=== PATIENT | male | born 1985 | race Caucasian/White ===

== ENCOUNTER 2018-07-21 13:35 | Emergency (ER) | payer BC ==
--- NOTE | 2018-07-21 14:49 | RAD REPORT ---
EXAM DESCRIPTION: CT - Stone Protocol - 07/21/2018 2:37 pm CLINICAL HISTORY: Flank pain. left flank pain COMPARISON: CTSTONE PROTOCOL dated 03/21/2014 TECHNIQUE: Axial images were obtained without oral or IV contrast. Lack of contrast limits solid org an and vascular assessment. The [id number] spans the entirety of the system partially obscuring uppermost abdomen and lung bases. Coronal reformatted images were obtained and reviewed. All CT scans are performed using dose optimization technique as appropriate and may include automated exposure control or mA/KV adjustment according to patient size. FINDINGS: The lower lung sanchez are clear. Imaged portions of the liver and spleen show no suspicious findings on non-contrast imaging. The panc reas and adrenal glands are normal. No pathologic lymphadenopathy in the abdomen or pelvis. A 2 mm calculus is present in the urinary bladder. This may be a recently passed stone. Minimal resid ual left-sided hydronephrosis suspected. Multiple punctate additional caliceal stones are present nelly aterally as well. No bowel obstruction, free air, free fluid or abscess. Normal appendix noted. No significant bony abnormality. IMPRESSION: 2 mm calculus in the urinary bladder may be recently passed via the left system where there is minimal residual left-sided hydronephrosis noted. Additional punctate bilateral renal calculi are noted.
[2018-07-21 15:06] LABS: Absolute Lymphocytes (CBC) 1.4 K/uL (0.7-4.9); Absolute Monocytes 0.4 K/uL (0.1-1.3); Absolute Neutrophil 6.5 K/uL (1.8-8.0); Basophils % 0.7 % (0-1.3); Eosinophils % 0.6 % (0-4.4); Hematocrit 45.2 % (39.6-49.0); Lymphocytes % 16.6 % (15.3-44.8); MPV 7.5 fL (7.6-11.3); Monocytes % 4.6 % (3.3-12.3); RBC Red Blood Cell Count 5.27 M/uL (4.33-5.43)
[2018-07-21 15:21] LABS: Albumin 4.3 g/dL (3.4-5.0); Bilirubin Direct 0.1 mg/dL (0-0.2); Bilirubin Total 0.6 mg/dL (0.2-1.0); Protein, Total 7.4 g/dL (6.4-8.2)
--- NOTE | 2018-07-21 15:46 | EDPHYS ---
Physician Documentation [facility] Name: Quinn Sterling II Age: 33 yrs Sex: Male : 1985 Arrival Date: 07/21/2018 Time: 13:38 Bed 13 Private MD: ED Physician Alok Peacock HPI: 07/21 14:15 This 33 yrs old Male presents to ER via Ambulatory with complaints of cp Possible Kidney Stone. 14:15 The patient complains of pain in the left flank. cp 14:15 The pain radiates to the abdomen. Onset: The symptoms/episode began/occurred this cp morning, and improved just prior to arrival. Associated signs and symptoms: Pertinent positives: nausea, Pertinent negatives: diarrhea, dizziness, fever, pain radiating to the lower extremities, vomiting. Severity of pain: in the emergency department the pain has improved markedly. The patient has experienced similar episodes in the past, today's symptoms are similar, to when the patient was apparently diagnosed with kidney stones. Historical: - Allergies: 14:01 PENICILLINS; jl7 14:01 Sulfa (Sulfonamide Antibiotics); jl7 - Home Meds: 14:01 None [Active]; jl7 - PMHx: 14:01 Kidney stones; jl7 - PSHx: 14:01 None; jl7 - Immunization history:: Adult Immunizations unknown. - Social history:: Smoking status: Patient/guardian denies using tobacco. - Ebola Screening: : No symptoms or risks identified at this time. ROS: 14:20 Constitutional: Negative for body aches, chills, fever, poor PO intake. cp 14:20 Eyes: Negative for injury, pain, redness, and discharge. cp 14:20 ENT: Negative for drainage from ear(s), ear pain, sore throat, difficulty swallowing, difficulty handling secretions. 14:20 Cardiovascular: Negative for chest pain, edema, palpitations. 14:20 Respiratory: Negative for cough, shortness of breath, wheezing. 14:20 Abdomen/GI: Positive for nausea, Negative for vomiting, diarrhea, constipation, black/tarry stool, rectal bleeding. 14:20 Back: Positive for flank pain, on the left, Negative for injury or acute deformity. 14:20 : Positive for burning with urination, Negative for testicular pain 14:20 Skin: Negative for cellulitis, rash. 14:20 All other systems are negative. Exam: 14:25 Constitutional: The patient appears in no acute distress, alert, awake, non-toxic, well cp developed, well nourished. 14:25 Head/Face: Normocephalic, atraumatic. cp 14:25 Eyes: Periorbital structures: appear normal, Conjunctiva: normal, no exudate, no injection, Sclera: no appreciated abnormality, Lids and lashes: appear normal, bilaterally. 14:25 ENT: External ear(s): are unremarkable, Nose: is normal, Mouth: Lips: moist, Oral mucosa: pink and intact, moist, Posterior pharynx: is normal, airway is patent, no erythema, no exudate. 14:25 Chest/axilla: Inspection: normal, Palpation: is normal, no crepitus, no tenderness. 14:25 Cardiovascular: Rate: normal, Rhythm: regular. 14:25 Respiratory: the patient does not display signs of respiratory distress, Respirations: normal, no use of accessory muscles, no retractions, no splinting, no tachypnea, labored breathing, is not present, Breath sounds: are clear throughout, no decreased breath sounds, no stridor, no wheezing. 14:25 Abdomen/GI: Inspection: abdomen appears normal, Bowel sounds: active, all quadrants, Palpation: soft, in all quadrants, nontender, in all quadrants, rebound tenderness, is not appreciated. 14:25 Back: CVA tenderness, is absent. 14:25 Skin: cellulitis, is not appreciated, no rash present. Vital Signs: 14:01 BP 132 / 82; Pulse 66; Resp 16 S; Temp 97.9(O); Pulse Ox 97% on R/A; Weight 106.59 kg jl7 (R); Height 5 ft. 10 in. (177.80 cm) (R); Pain 6/10; 16:08 BP 140 / 92; Pulse 66; Resp 16; Pulse Ox 98% on R/A; aj 14:01 Body Mass Index 33.72 (106.59 kg, 177.80 cm) jl7 MDM: 13:55 Patient medically screened. cp 15:45 Data reviewed: vital signs, nurses notes, lab test result(s), radiologic studies, CT cp scan. 15:45 Differential diagnosis: nephrolithiasis, pyelonephritis, UTI, diverticulitis. cp Counseling: I had a detailed discussion with the patient and/or guardian regarding: the historical points, exam findings, and any diagnostic results supporting the discharge/admit diagnosis, lab results, radiology results, to return to the emergency department if symptoms worsen or persist or if there are any questions or concerns that arise at home. Response to treatment: the patient's symptoms have resolved after treatment, the patient's pain is gone. 07/21 14:11 Order name: Basic Metabolic Panel; Complete Time: 15:39 cp 07/21 15:39 Interpretation: Normal except: CL 110; GFR 78. cp 07/21 14:11 Order name: CBC with Diff; Complete Time: 15:39 cp 07/21 15:39 Interpretation: Normal except: MPV 7.5; FERMIN% 77.5. cp 07/21 14:11 Order name: Creatinine for Radiology; Complete Time: 15:39 cp 07/21 14:11 Order name: Hepatic Function; Complete Time: 15:39 cp 07/21 14:11 Order name: Lipase; Complete Time: 15:39 cp 07/21 14:11 Order name: IV Saline Lock; Complete Time: 14:55 cp 07/21 14:11 Order name: Labs collected and sent; Complete Time: 14:55 cp 07/21 14:11 Order name: CT Stone Protocol; Complete Time: 14:54 cp 07/21 14:11 Order name: Urine Dipstick-Ancillary (obtain specimen); Complete Time: 14:54 cp 07/21 15:42 Order name: Urine Strainer cp Administered Medications: No medications were administered Disposition: 07/21/18 15:45 Discharged to Home. Impression: Calculus of lower urinary tract - Bladder. - Condition is Stable. - Discharge Instructions: Kidney Stones. - Medication Reconciliation Form, Thank You Letter, Antibiotic Education, Prescription Opioid Use form. - Follow up: Emergency Department; When: As needed; Reason: Worsening of condition. - Problem is new. - Symptoms have improved. Addendum: 07/24/2018 20:25 Co-signature as Attending Physician, Alok Peacock MD. r n Signatures: Dispatcher [employer] Leslie Kaiser RN RN aj Nieto, Roman, MD MD rn Page, Corey, PA PA Bianca Parker RN RN jl7 Corrections: (The following items were deleted from the chart) 07/21 16:12 15:45 07/21/2018 15:45 Discharged to Home. Impression: Calculus of lower urinary tract aj - Bladder. Condition is Stable. Forms are Medication Reconciliation Form, Thank You Letter, Antibiotic Education, Prescription Opioid Use. Follow up: Emergency Department; When: As needed; Reason: Worsening of condition. Problem is new. Symptoms have improved. cp
--- NOTE | 2018-07-21 15:46 | ER ---
Nurse's Notes [facility] Name: Quinn Sterling II Age: 33 yrs Sex: Male : 1985 Arrival Date: 07/21/2018 Time: 13:38 Bed 13 Private MD: Diagnosis: Calculus of lower urinary tract-Bladder Presentation: 07/21 14:00 Presenting complaint: Patient states: Left flank pain radiate to groin started at 0400 jl7 and has gotten worse, reports vomiting, reports hx of kidney stones. Transition of care: patient was not received from another setting of care. Onset of symptoms was July 21, 2018 at 04:00. Risk Assessment: Do you want to hurt yourself or someone else? Patient reports no desire to harm self or others. Initial Sepsis Screen: Does the patient meet any 2 criteria? No. Patient's initial sepsis screen is negative. Does the patient have a suspected source of infection? No. Patient's initial sepsis screen is negative. Care prior to arrival: None. 14:00 Method Of Arrival: Ambulatory jl7 14:00 Acuity: LORA 3 jl7 Triage Assessment: 14:01 General: Appears in no apparent distress. uncomfortable, Behavior is calm, cooperative, jl7 appropriate for age. Pain: Complains of pain in right flank Pain radiates to groin Pain currently is 6 out of 10 on a pain scale. at worst was 10 out of 10 on a pain scale. GI: Reports vomiting, Patient currently denies diarrhea, nausea. Historical: - Allergies: 14:01 PENICILLINS; jl7 14:01 Sulfa (Sulfonamide Antibiotics); jl7 - Home Meds: 14:01 None [Active]; jl7 - PMHx: 14:01 Kidney stones; jl7 - PSHx: 14:01 None; jl7 - Immunization history:: Adult Immunizations unknown. - Social history:: Smoking status: Patient/guardian denies using tobacco. - Ebola Screening: : No symptoms or risks identified at this time. Screenin:03 Abuse screen: Denies threats or abuse. Denies injuries from another. Nutritional jl7 screening: No deficits noted. Tuberculosis screening: No symptoms or risk factors identified. 16:08 Fall Risk None identified. aj Assessment: 16:08 General: Appears in no apparent distress. comfortable, Behavior is calm, cooperative, aj appropriate for age. Pain: Denies pain. Neuro: Level of Consciousness is awake, alert, obeys commands, Oriented to person, place, time, situation, Appropriate for age. Respiratory: Airway is patent Respiratory effort is even, unlabored, Respiratory pattern is regular, symmetrical. : Denies pain. Derm: Skin is intact, is healthy with good turgor, Skin is pink, warm \T\ dry. normal. 16:11 GI: aj Vital Signs: 14:01 BP 132 / 82; Pulse 66; Resp 16 S; Temp 97.9(O); Pulse Ox 97% on R/A; Weight 106.59 kg jl7 (R); Height 5 ft. 10 in. (177.80 cm) (R); Pain 6/10; 16:08 BP 140 / 92; Pulse 66; Resp 16; Pulse Ox 98% on R/A; aj 14:01 Body Mass Index 33.72 (106.59 kg, 177.80 cm) [facility] ED Course: 13:38 Patient arrived in ED. mr 13:54 Joe Flynn PA is PHCP. cp 13:54 Alok Peacock MD is Attending Physician. cp 13:58 Leslie Blanco, RN is Primary Nurse. 14:01 Triage completed. [facility] 14:01 Arm band placed on right wrist. [facility] 14:03 Patient has correct armband on for positive identification. Bed in low position. Call [facility] light in reach. Side rails up X 1. 14:38 CT Stone Protocol In Process Unspecified. EDMS 14:52 Initial lab(s) drawn, by nc, sent to lab. Inserted saline lock: 20 gauge in left 5 antecubital area, using aseptic technique. Blood collected. 14:54 [facility] 14:54 Creatinine [facility] Rad[facility] 14:55 Hepatic Function [facility] 14:55 Lipase [facility] 16:08 No provider procedures requiring assistance completed. IV discontinued, intact, aj bleeding controlled, No redness/swelling at site. Pressure dressing applied. Administered Medications: No medications were administered Outcome: 15:45 Discharge ordered by MD. cp 16:08 Discharged to home ambulatory, with family. aj 16:08 Condition: good 16:08 Discharge instructions given to patient, significant other, Instructed on discharge instructions, follow up and referral plans. Demonstrated understanding of instructions, follow-up care. 16:12 Patient left the ED. aj Signatures: Dispatcher [employer] Leslie Kaiser, RN Keyla George Corey, PA PA cp [place], [facility] Bianca Powell RN RN jl7
[2018-07-21 16:26] VITALS: TEMP 97.9
[2018-07-21 16:27] VITALS: BP 140/92; O2SAT 98
== END 2018-07-21 16:12 | disposition home or self-care (01) ==
LOC: ER 13:35
DX: N21.9 Calculus of lower urinary tract, unspecified (principal); Z88.0 Allergy status to penicillin; Z88.2 Allergy status to sulfonamides
CPT/HCPCS: 36415; 74176; 76377; 80048; 80076; 83690; 85025; 99283

== ENCOUNTER 2019-03-02 07:55 | Day surgery (SDC) | payer BC ==
[2019-03-01 14:29] LABS: Absolute Lymphocytes (CBC) 2.2 K/uL (0.7-4.9); Basophils % 1.1 % (0-1.3); Hematocrit 41.6 % (39.6-49.0); Lymphocytes % 40.1 % (15.3-44.8); MPV 7.6 fL (7.6-11.3); RBC Red Blood Cell Count 4.85 M/uL (4.33-5.43)
[2019-03-02] MEDS ORDERED: Ringers Lactate 1,000 ML IV ONE ×2 (08:05→13:59)
[2019-03-02] MEDS ORDERED: ONDANSETRON 4 MG/2 ML VIAL ONE ×2 (09:05→13:53)
[2019-03-02] MEDS ORDERED: MIDAZOLAM HCL 2 MG/2 ML INJ ONE (09:05)
[2019-03-02] MEDS ORDERED: FENTANYL CITR 250 MCG/5 ML ONE (09:05)
[2019-03-02] MEDS ORDERED: LIDOCAINE 2% MPF 5 ML VIAL ONE (09:05)
[2019-03-02] MEDS ORDERED: PROPOFOL 200 MG/20 ML VIAL IV ONE (09:05)
[2019-03-02] MEDS ORDERED: ROCURONIUM 50 MG/5 ML VIAL IV ONE (09:05)
[2019-03-02] MEDS ORDERED: CIPROFLOXACIN 400mg IV 400 MG/200 ML BAG IV ONE (09:58)
[2019-03-02] MEDS ORDERED: GLYCOPYRROLATE 0.2 MG/ML SYR ONE (11:00)
[2019-03-02] MEDS ORDERED: KETOROLAC 30 MG/ML INJ ONE (11:11)
--- NOTE | 2019-03-02 11:17 | P.BOP ---
Preoperative diagnosis: Left inguinal hernia Postoperative diagnosis: same Primary procedure: Laparoscopic repair of incarcerated left inguinal hernia with mesh Steward/Stewardess Second: Avelina Logan) Estimated blood loss: <10cc Specimen: none Findings: Left inguinal henia, incarcerated viable omentum Anesthesia: General Complications: None Implants: 3d medium mesh Transferred to: Recovery Room Condition: Good
[2019-03-02] MEDS: HYDROMORPHONE HCL 1 MG/ML INJ ONE ×4 (11:41→12:29)
[2019-03-02] MEDS ORDERED: ONDANSETRON 4 MG/2 ML VIAL IV ONE (13:55)
[2019-03-02] MEDS ORDERED: HYDROCODONE/APAP 7.5/325 MG TAB ONE (15:25)
[2019-03-02] MEDS ORDERED: HYDROCODONE/APAP 7.5/325 MG TAB PO ONE (15:30)
[2019-03-02 16:13] VITALS: TEMP 97.6
[2019-03-02 16:14] VITALS: BP 118/81; O2SAT 95
--- NOTE | 2019-03-04 00:46 | OP ---
Date of Procedure: 03/02/2019 Surgeon: Yovanny Crandall MD Power Equipment Mechanics Instructor: JANES David. Preoperative Diagnosis: Left inguinal hernia. Postoperative Diagnosis: Left inguinal hernia. Procedure: Laparoscopic repair of incarcerated left inguinal hernia with mesh. Findings: Left inguinal hernia incarcerated viable omentum. Anesthesia: General plus local. Implants: A 3D mesh medium. This is a case of a male, who comes to us with a tender left inguinal hernia. Benefits, alternatives , and risks of repair fully explained which include, but not limited to infection, bleeding, damage t o adjacent structures, anesthesia complication, recurrence, chronic pain, chronic numbness, fascicula r damage, MA, and even . He also understands this may not relieve the symptoms. He might need more than one surgical intervention. He understood, signed a consent. Patient was explained details about the mesh placement. The pros and cons of mesh placement were discussed with the patient and h e did allow me to use mesh. Description Of Procedure: Patient was brought to the operating room, placed in supine position. Ane sthesia was given without complication. A time-out was called. Abdomen and inguinal region were pre pped and draped in sterile fashion. An incision was made in the infraumbilical region. Incision was carried down until we found the anterior rectus sheath. It was open on the left side. The muscle w as retracted laterally to expose the posterior rectus sheath. The extraperitoneal space was gently d eveloped with blunt dissection and then a space maker device with the balloon that was inflated under direct visualization. Balloon was removed. Insufflation was obtained. Camera was placed once agai n, and we placed 2 more trocars, 5 mm, 1 in the pubic symphysis and another one [facility] between the f irst and the second one. Development of the extraperitoneal space was done by exposing the inferior epigastric vessels and keeping them anterior. The Michael ligament was dissected laterally to the alec ction with the iliac veins. The dissection was continued inferiorly to the iliopubic tract, avoiding damage to the femoral branch of the genitofemoral nerve and lateral femoral cutaneous nerve. The co rd structures were visualized, carefully skeletonized, sac was identified and carefully dissected vani e and reduced back into the abdominal cavity. A 3D medium mesh was then rolled and placed through on e of the trocar site in the working space, outlined with the space to cover direct and indirect space s. The mesh was secured in place with SorbaFix lateral and superior to the iliopubic tract and infer ior and medial to the Michael ligament. After securing adequate hemostasis and injected the area with some lidocaine for local anesthetic, we proceeded to deflate the area under direct visualization and made sure we held the mesh in place and also made sure the hernia sac was still reduced into the per itoneal cavity. Trocars were removed. Vicryl #1 used to close the anterior rectus sheath and the sk in in subcuticular fashion with 3-0 chromic and Steri-Strips on top. Sponge count and instrument cou nts were correct. The patient tolerated the procedure well. The patient was sent to recovery in sta ble condition. At the end of the case, the testicles were in the scrotum. Disposition: Home. Activity: As tolerated. No heavy lifting. Followup: Follow up in my office in 1 week. Call for appointment [phone]. Keep area dry for 48 ho urs, then may shower. Keep Steri-Strips intact. Use cold compress over the left inguinal region for 24 hours. Medications: See orders. JACKI/DARRELL Voice ID: [id number] Report ID: [id number]
== END 2019-03-02 15:50 | disposition home or self-care (01) ==
LOC: OR 07:55
PROVIDERS: ATTEND Surgery
PROC: 0YU64JZ Supplement Left Inguinal Region with Synthetic Substitute, Percutaneous Endoscopic Approach (ICD-10-PCS; principal; 2019-03-02 10:00)
DX: K40.30 Unilateral inguinal hernia, with obstruction, without gangrene, not specified as recurrent (principal); Z88.0 Allergy status to penicillin; Z88.2 Allergy status to sulfonamides
CPT/HCPCS: 85025; 80048; 36415; 49650; J2704; J2250; J3010; J1170 ×2; J2405 ×3; J0744

== ENCOUNTER 2022-05-21 05:58 | Day surgery (SDC) | payer BC ==
[2022-05-19 09:56] LABS: Absolute Lymphocytes (CBC) 2.1 K/uL (0.7-4.9); Hematocrit 45.2 % (39.6-49.0); MPV 7.7 fL (7.6-11.3); RBC Red Blood Cell Count 5.25 M/uL (4.33-5.43)
[2022-05-19 10:07] LABS: Albumin 3.9 g/dL (3.4-5.0); Bilirubin Direct 0.1 mg/dL (0-0.2); Bilirubin Total 0.6 mg/dL (0.2-1.0); Potassium 4.3 mmol/L (3.5-5.1); Protein, Total 7.5 g/dL (6.4-8.2)
[2022-05-21] MEDS ORDERED: Ringers Lactate 1,000 ML IV ONE (06:11)
[2022-05-21] MEDS ORDERED: CELECOXIB 100 MG CAPSULE ONE (07:15)
[2022-05-21] MEDS ORDERED: ACETAMINOPHEN 500 MG TAB ONE (07:15)
[2022-05-21] MEDS ORDERED: propofoL 200 MG/20 ML VIAL IV ONE (07:16)
[2022-05-21] MEDS ORDERED: FENTANYL CITR 100 MCG/2 ML ONE (07:17)
[2022-05-21] MEDS ORDERED: ONDANSETRON 4 MG/2 ML VIAL ONE ×2 (07:18→08:50)
[2022-05-21] MEDS ORDERED: LIDOCAINE 2% MPF 5 ML VIAL ONE (07:18)
[2022-05-21] MEDS ORDERED: MIDAZOLAM HCL 2 MG/2 ML INJ ONE (07:18)
[2022-05-21] MEDS ORDERED: ROCURONIUM 50 MG/5 ML VIAL IV ONE (07:18)
[2022-05-21] MEDS ORDERED: CIPROFLOXACIN 400mg IV 400 MG/200 ML BAG IV ONE (07:29)
[2022-05-21] MEDS ORDERED: dexAMETHasone 4 MG/ML VIAL ONE (07:49)
[2022-05-21] MEDS ORDERED: KETOROLAC 30 MG/ML INJ ONE (08:10)
[2022-05-21] MEDS ORDERED: NEOSTIGMINE 1 MG/ML -5 ML ONE (08:11)
[2022-05-21] MEDS ORDERED: GLYCOPYRROLATE 0.2 MG/ML SYR ONE (08:11)
--- NOTE | 2022-05-21 08:13 | P.BOP ---
Preoperative diagnosis: RUQ abd pain, biliary dyskinesia Postoperative diagnosis: same, umbilical hernia Primary procedure: Laparoscopic Cholecystectomy Secondary procedure: Umbilical hernia repair Morgue Technician: FELICITY BLAIR (DINKING MACHINE OPERATOR) Estimated blood loss: <10cc Specimen: GB, sac Findings: as above Anesthesia: General Complications: None Transferred to: Recovery Room Condition: Good
[2022-05-21] MEDS: HYDROMORPHONE HCL 1 MG/ML INJ ONE ×2 (08:54→09:04)
[2022-05-21] MEDS ORDERED: PROMETHAZINE INJ 25 MG/ML AMP ONE (08:59)
[2022-05-21] MEDS ORDERED: CODEINE 30MG/APAP 300MG TAB ONE (09:53)
[2022-05-21 11:09] VITALS: BP 123/87; TEMP 97; O2SAT 94
--- NOTE | 2022-05-21 21:00 | DS ---
Date of Discharge: 05/21/2022 Diagnoses: Biliary dyskinesia and right upper quadrant abdominal pain. Procedure: Laparoscopic cholecystectomy. Disposition: Home. Activity: As tolerated, no heavy lifting. Follow Up: In my office in 1 week. Call for appointment at [phone]. Discharge Instructions: Keep the area dry for 48 hours, then may shower. Keep Steri-Strips intact. JACKI/DARRELL Voice ID: [id number] Report ID: [id number]
--- NOTE | 2022-05-21 21:00 | OP ---
Date of Procedure: 05/21/2022 Surgeon: Yovanny Crandall MD Preoperative Diagnoses: Biliary dyskinesia and right upper quadrant abdominal pain. Postoperative Diagnoses: Biliary dyskinesia, right upper quadrant abdominal pain, and umbilical keren ia. Procedures: Laparoscopic cholecystectomy and open repair of umbilical hernia. Anesthesia: General plus local. Estimated Blood Loss: Less than 10 cc. Specimen: Gallbladder. Indications: This is a case of a 36-year-old patient with above diagnoses. Fully explained the bene fits, alternatives, and risks of laparoscopic possible open cholecystectomy, which include, but are n ot limited to infection, bleeding, damage to adjacent structures, anesthesia complication, choledocho lithiasis, bile leak, pancreatitis, PR, and . He also understands this might not relieve any sy mptoms. He might need more than one surgical intervention. He understood and signed a consent. Procedure In Detail: Patient was brought to the operating room and placed in supine position. Anest hesia was given without complication. Abdominal area was prepped and draped in usual sterile fashion . Marcaine 0.5% was injected for local anesthetic followed by sharp incision of the skin in the infr aumbilical region. When we did that, we noticed the patient to have a small reducible umbilical keren ia so we added our incision to that umbilical hernia, removed the hernia sac, cleaned the fascia edge s, placed Vicryl #1 inside the fascia. Rosana trocar was carefully introduced. Pneumoperitoneum was obtained. I placed 3 more trocars, 5 mm each one of them, in the epigastric and right upper quadran t area under direct visualization. At that moment, I proceeded to put a grasper in the fundus of the gallbladder and another grasper in the infundibulum, retracting the gallbladder in the inferolateral fashion exposing the triangle of Calot and obtaining critical view. Cystic duct and cystic artery w ere clearly isolated and freed circumferentially and a connection between those and the gallbladder w ere clearly identified. I proceeded to ligate those by using at least 3 clips proximal and 1 clip di stal and ligation in middle. Same was done with the cystic artery. No bile leak. No bleeding. The gallbladder was removed from liver using Bovie cauterizer and removed from abdominal cavity using En do Catch through the umbilical incision. The area was inspected once again. No bile leak. No bleed ing. At that moment, I proceeded to remove the trocars under direct vision, deflated the pneumoperit oneum, and closed the fascia and umbilical hernia with #1 Vicryl. Irrigated subcutaneous tissue, joanna sed that with 3-0 chromic and skin with 3-0 chromic in a subcuticular fashion. Sponge count and inst rument counts were correct. Patient tolerated the procedure well. Patient was sent to recovery in s table condition. JACKI/DARRELL Voice ID: [id number] Report ID: [id number]
== END 2022-05-21 10:27 | disposition home or self-care (01) ==
LOC: OR 05:58
PROVIDERS: ATTEND Surgery
PROC: 0FT44ZZ Resection of Gallbladder, Percutaneous Endoscopic Approach (ICD-10-PCS; principal; 2022-05-21 07:30)
DX: K82.8 Other specified diseases of gallbladder (principal); R10.11 Right upper quadrant pain; K42.9 Umbilical hernia without obstruction or gangrene; Z88.0 Allergy status to penicillin; Z88.2 Allergy status to sulfonamides
CPT/HCPCS: 47562; 85025; 80048; 36415; 82150; 80076; 88302; 88304; 83690; J2704; J1100; J2550; J2001; J2250; J3010; J1170; J2710; J7120; J2405 ×2; J0744

== ENCOUNTER 2025-04-05 19:53 | Emergency (ER) | payer BC ==
[2025-04-05] MEDS ORDERED: ONDANSETRON 4 MG/2 ML VIAL ONE (20:27)
[2025-04-05] MEDS ORDERED: NA CHLORIDE 0.9% 1,000 ML ONE (20:27)
[2025-04-05] MEDS ORDERED: KETOROLAC 30 MG/ML INJ ONE (20:27)
[2025-04-05] MEDS ORDERED: HYDROMORPHONE HCL 2 MG/ML inj ONE (20:58)
[2025-04-05 21:01] LABS: Absolute Lymphocytes (CBC) 0.8 K/uL (0.7-4.9); Hematocrit 43.3 % (39.6-49.0); Hemoglobin 15.3 g/dL (13.6-17.9); MCH 29.8 pg (27.0-35.0); MCHC 35.2 g/dL (32.0-36.0); MCV 84.6 fL (80-100); MPV 7.4 fL (7.6-11.3); Nucleated RBC Absolute Count 0.0 (0-0); Nucleated Red Blood Cells % 0.1 % (0-0); RBC Red Blood Cell Count 5.12 M/uL (4.33-5.43); White Blood Count 10.80 thou/uL (4.3-10.9)
--- NOTE | 2025-04-05 21:02 | RAD REPORT ---
EXAMINATION: CT Abdomen Pelvis Wo Contrast CLINICAL INDICATION: Male, 39 years old. stone protocol;Flank pain TECHNIQUE: CT abdomen and pelvis was performed, without IV contrast, as per department protocol. Axia l, sagittal and coronal reconstructions were obtained. One or more of the following dose reduction techniques were used: Automated exposure control, adjustment of the mA and kV according to the patien t size, and iterative reconstruction. Unless otherwise specified, incidental findings do not require dedicated imaging follow-up. COMPARISON: 07/21/2018 FINDINGS: The lack of intravenous contrast limits the sensitivity of this exam for evaluation of solid visceral organs, vascular structures, and retroperitoneum. LOWER CHEST: The visualized lung bases are clear. LIVER: Normal in size and contour. No focal lesion. BILIARY SYSTEM: Status post cholecystectomy. SPLEEN: Normal size. No focal lesion. PANCREAS: No mass, ductal dilation, or janina-pancreatic fluid. ADRENALS: Normal; no mass. KIDNEYS AND URETERS: Mild hydronephrosis and proximal left hydroureter. 6 mm calculus at the left pel viureteric junction. Periureteric fat stranding extends towards the mid left ureter. Other nonobstructing calculi along the right renal calyces largest measuring 5 mm. URINARY BLADDER: Normal contour. GASTROINTESTINAL TRACT: No evidence of bowel obstruction, significant free fluid, free air or abscess . APPENDIX: Normal appendix upper from stable mild fat stranding surrounding the tip of the appendix. LYMPH NODES: No lymphadenopathy. MUSCULOSKELETAL: No acute or suspicious osseous abnormality. ADDITIONAL FINDINGS: None. IMPRESSION: Mild hydronephrosis and proximal left hydroureter. 6 mm calculus at the left pelviureteric junction. Other nonobstructing right renal calculi up to 5 mm in size. THIS REPORT CONTAINS FINDINGS THAT MAY BE CRITICAL TO PATIENT CARE. The findings were verbally commun icated via telephone to Joe Page on 04/05/2025 8:59 PM.
[2025-04-05 21:17] LABS: ALT/SGPT 38.0 U/L (16-61); AST/SGOT 16.0 U/L (15-37); Albumin 4.1 g/dL (3.4-5.0); Albumin/Globulin Ratio 1.2 (1.1-1.8); Alkaline Phosphatase 81.0 U/L (45-117); Anion Gap 7.8 mEq/L (5.0-15.0); BUN Blood Urea Nitrogen 13.0 mg/dL (7-18); Globulin 3.5 g/dL (2.3-3.5); Glucose Level 121.0 mg/dL (74-106); Lipase 21.0 U/L (13-75); Potassium 3.8 mEq/L (3.5-5.1)
[2025-04-05 21:45] LABS: Blood Morphology Comment NOT SEEN (NOT SEEN); White Blood Cell Scan OK (OK)
[2025-04-05 21:55] LABS: Urine Microscopic Reflex YN NO UMIC
--- NOTE | 2025-04-05 22:04 | EDPHYS ---
Physician Documentation [facility] Name: Quinn Sterling II Age: 39 yrs Sex: Male : 1985 Arrival Date: 04/05/2025 Time: 19:53 Bed 4 Private MD: Justin Powell ED Physician Ana Luisa Hay HPI: 04/05 20:15 This 39 yrs old Male presents to ER via Ambulatory with complaints of Possible Kidney sp3 Stone. 20:15 39-year-old male with history of hypertension and kidney stones presents to the ED with sp3 24 hours of left flank pain consistent with his prior kidney stone episodes. He endorses nausea. He denies headache, neck pain, chest pain, shortness of breath, vomiting, diarrhea, syncope, near syncope, or any other signs or symptoms on ROS at this time.. Historical: - Allergies: 20:07 PENICILLINS; dd2 20:07 Sulfa (Sulfonamide Antibiotics); dd2 - PMHx: 20:07 Kidney stones; Hypertensive disorder; dd2 - PSHx: 20:07 Cholecystectomy; Vasectomy; KIDNEY STENTS; dd2 - Immunization history:: Adult Immunizations up to date. - Infectious Disease History:: Denies. - Social history:: Smoking status: Patient denies any tobacco usage or history of. ROS: 20:16 Constitutional: Negative for fever, chills, and weight loss, Eyes: Negative for injury, sp3 pain, redness, and discharge, Neck: Negative for injury, pain, and swelling, Cardiovascular: Negative for chest pain, palpitations, and edema, Respiratory: Negative for shortness of breath, cough, wheezing, and pleuritic chest pain, MS/Extremity: Negative for injury and deformity, Skin: Negative for injury, rash, and discoloration, Neuro: Negative for headache, weakness, numbness, tingling, and seizure, Psych: Negative for depression, anxiety, suicide ideation, homicidal ideation, and hallucinations, Allergy/Immunology: Negative for hives, rash, and allergies, Endocrine: Negative for neck swelling, polydipsia, polyuria, polyphagia, and marked weight changes, 20:16 All other systems are negative, Exam: 20:16 Constitutional: This is a well developed, well nourished patient who is awake, alert, sp3 and in no acute distress. Head/Face: Normocephalic, atraumatic. Eyes: Pupils equal round and reactive to light, extra-ocular motions intact. Lids and lashes normal. Conjunctiva and sclera are non-icteric and not injected. Cornea within normal limits. Periorbital areas with no swelling, redness, or edema. ENT: Nares patent. No nasal discharge, no septal abnormalities noted. External auditory canals are clear. Oropharynx with no redness, swelling, or masses, exudates, or evidence of obstruction, uvula midline. Mucous membranes moist. Neck: Trachea midline, no thyromegaly or masses palpated, and no cervical lymphadenopathy. Supple, full range of motion without nuchal rigidity, or vertebral point tenderness. No Meningismus. Chest/axilla: Normal chest wall appearance and motion. Nontender with no deformity. No lesions are appreciated. Cardiovascular: Regular rate and rhythm with a normal S1 and S2. No gallops, murmurs, or rubs. Normal PMI, no JVD. No pulse deficits. Respiratory: Lungs have equal breath sounds bilaterally, clear to auscultation and percussion. No rales, rhonchi or wheezes noted. No increased work of breathing, no retractions or nasal flaring. Skin: Warm, dry with normal turgor. Normal color with no rashes, no lesions, and no evidence of cellulitis. MS/ Extremity: Pulses equal, no cyanosis. Neurovascular intact. Full, normal range of motion. Neuro: Awake and alert, GCS 15, oriented to person, place, time, and situation. Cranial nerves II-XII grossly intact. Motor strength 5/5 in all extremities. Sensory grossly intact. Cerebellar exam normal. Normal gait. Psych: Awake, alert, with orientation to person, place and time. Behavior, mood, and affect are within normal limits. 20:16 Abdomen/GI: Abdomen is soft. Left flank pain on CVA exam noted. Positive CVA tenderness., Vital Signs: 20:03 BP 129 / 95; Pulse 62; Resp 17; Temp 98.3; Pulse Ox 100% on R/A; Weight 101.6 kg; dd2 Height 5 ft. 10 in. ; Pain 5/10; 20:44 BP 129 / 85; Pulse 57; Resp 18; Pulse Ox 100% on R/A; al5 21:33 BP 129 / 86; Pulse 56; Resp 16; Pulse Ox 92% on R/A; kb4 21:54 Pulse Ox 97% on 2 lpm NC; kb4 22:24 BP 130 / 86; Pulse 65; Resp 16; Pulse Ox 98% on R/A; kb4 20:03 Body Mass Index 32.14 (101.60 kg, 177.8 cm) dd2 20:03 Pain Scale: Adult dd2 MDM: 20:02 Medical Screening Exam initiated sp3 20:17 Data reviewed: vital signs, nurses notes, lab test result(s), radiologic studies. ED sp3 course: 39-year-old male with left flank pain. Differential diagnosis includes ureterolithiasis/kidney stone spectrum, UTI/pyelonephritis spectrum, musculoskeletal, colitis, other intra-abdominal pathology including biliary and/or appendix. Workup will include CT scan of the abdomen pelvis noncontrast and a kidney stone protocol, general labs, UA and treatment with IV fluids and pain and nausea medications as needed.. 22:00 ED course: Patient with 6 mm kidney stone in the left UPJ. Creatinine at 1.2 in the sp3 normal range and UA demonstrates no infection. Pain is now controlled after Dilaudid. We will safely discharge patient home on Flomax, tramadol, diclofenac.. 04/05 20:10 Order name: CBC with Diff; Complete Time: 21:52 sp3 04/05 20:10 Order name: CMP; Complete Time: 21:52 sp3 04/05 20:10 Order name: Lipase; Complete Time: 21:52 sp3 04/05 20:10 Order name: UA Rfx Archie Cult if indicated; Complete Time: 21:59 sp3 04/05 21:04 Order name: CBC Smear Scan; Complete Time: 21:52 EDMS 04/05 20:10 Order name: CT Abd/Pelvis - Without Contrast; Complete Time: 21:09 sp3 04/05 20:10 Order name: IV Saline Lock; Complete Time: 20:48 sp3 04/05 20:10 Order name: Labs collected and sent; Complete Time: 20:48 sp3 Administered Medications: 20:38 Drug: TORadol - Ketorolac IVP 15 mg IVP once Route: IVP; Site: right antecubital; al5 21:02 Follow up: Response: No adverse reaction al5 20:38 Drug: Ondansetron IVP 4 mg IVP once; over 2 minutes Route: IVP; Site: right antecubital;al5 21:01 Follow up: Response: No adverse reaction al5 20:38 Drug: NS 0.9% IV 1000 ml IV at 1 bolus Per protocol; to be given as a bolus over 60 al5 minutes Route: IV; Rate: 1 bolus; Site: right antecubital; 21:01 Drug: HYDROmorphone IVP 2 mg IVP once Route: IVP; Site: left antecubital; al5 21:29 Follow up: Response: No adverse reaction kb4 Disposition Summary: 04/05/25 22:03 Discharge Ordered Notes: Location: Home sp3 Condition: Stable sp3 Diagnosis - Ureterolithiasis, kidney stone, left flank pain sp3 Followup: sp3 - With: Jose Alfredo Cortes MD - When: Upon discharge from the Emergency Department - Reason: Continuance of care Discharge Instructions: - Discharge Summary Sheet sp3 - Kidney Stones sp3 Forms: - Medication Reconciliation Form sp3 - Antibiotic Education sp3 - Prescription Opioid Use sp3 - Patient Portal Instructions sp3 - Leadership Thank You Letter sp3 Prescriptions: - Flomax 0.4 mg Oral capsule - take 1 capsule ORAL route daily; 7 capsule; Refills: 0, Product Selection sp3 Permitted - Diclofenac Sodium 75 mg Oral Tablet Sustained Release - take 1 tablet ORAL route 2 times per day; 30 tablet; Refills: 0, Product sp3 Selection Permitted - Tramadol 50 mg Oral Tablet - take 1 tablet ORAL route every 8 hours as needed; 12 tablet; Refills: 0, sp3 Product Selection Permitted Signatures: Dispatcher [employer] EDMS Ana Luisa Hay MD MD sp3 Leslie Andrea RN RN al5 ALDAIR RIZVI RN RN dd2 Louise Reddy RN RN kb4 Corrections: (The following items were deleted from the chart) 20:11 20:11 CBC+H.LAB.BRZ ordered. EDMS EDMS 20:11 20:11 COMPREHENSIVE METABOLIC PANEL+C.LAB.BRZ ordered. EDMS EDMS 20:11 20:11 LIPASE+C.LAB.BRZ ordered. EDMS EDMS 20:11 20:11 UA Rfx Archie Cult if indicated+U.LAB.BRZ ordered. EDMS EDMS 20:11 20:11 Abdomen Pelvis Wo Con+CT.RAD.BRZ ordered. EDMS EDMS
--- NOTE | 2025-04-05 22:04 | ER ---
Nurse's Notes [facility] Name: Quinn Sterling II Age: 39 yrs Sex: Male : 1985 Arrival Date: 04/05/2025 Time: 19:53 Bed 4 Private MD: Justin Powell Diagnosis: Ureterolithiasis, kidney stone, left flank pain Presentation: 04/05 20:03 Chief complaint: Patient states: LT MIDDLE AND LT LOWER BACK PAIN THAT RADIATES TO LT dd2 LOWER STOMACH AND LT GROIN. PT REPORTS HX OF KIDNEY STONES. Coronavirus screen: At this time, the client does not indicate any symptoms associated with coronavirus-19. Ebola Screen: No symptoms or risks identified at this time. Initial Sepsis Screen: Does the patient meet any 2 criteria? No. Patient's initial sepsis screen is negative. Does the patient have a suspected source of infection? No. Patient's initial sepsis screen is negative. Risk Assessment: Do you want to hurt yourself or someone else? Patient reports no desire to harm self or others. Onset of symptoms was April 05, 2025 at 08:15. 20:03 Method Of Arrival: Ambulatory dd2 20:03 Acuity: LORA 3 dd2 Triage Assessment: 20:07 General: Appears uncomfortable, Behavior is calm, cooperative, appropriate for age. dd2 Pain: Complains of pain in left low back and left mid back Pain radiates to left lower quadrant and groin. GI: Reports lower abdominal pain. : Reports pain in left lower quadrant(s) LT LOWER AND MIDDLE BACK. Historical: - Allergies: 20:07 PENICILLINS; dd2 20:07 Sulfa (Sulfonamide Antibiotics); dd2 - PMHx: 20:07 Kidney stones; Hypertensive disorder; dd2 - PSHx: 20:07 Cholecystectomy; Vasectomy; KIDNEY STENTS; dd2 - Immunization history:: Adult Immunizations up to date. - Infectious Disease History:: Denies. - Social history:: Smoking status: Patient denies any tobacco usage or history of. Screenin:00 [facility] ED Fall Risk Assessment (Adult) History of falling in the last 3 months, kb4 including since admission No falls in past 3 months (0 pts) Confusion or Disorientation No (0 pts) Intoxicated or Sedated No (0 pts) Impaired Gait No (0 pts) Mobility Assist Device Used No (0 pt) Altered Elimination No (0 pt) Score/Fall Risk Level 0 - 2 = Low Risk. Tuberculosis screening: No symptoms or risk factors identified. 22:25 Abuse screen: Denies threats or abuse. Denies injuries from another. Nutritional kb4 screening: No deficits noted. Assessment: 20:45 Reassessment: Patient is alert, oriented x 3, equal unlabored respirations, skin al5 warm/dry/pink. at bedside. General: Appears distressed, uncomfortable, Behavior is calm, cooperative. 20:58 Reassessment: pt reported very little relief from Toradol, physician notified. al5 21:25 GI: Bowel sounds present X 4 quads. Abd is soft and non tender X 4 quads. kb4 21:29 Reassessment: pain relieved from medication interventions. kb4 21:34 Reassessment: placed on2l NC. kb4 22:15 Reassessment: Patient and/or family updated on plan of care and expected duration. Pain kb4 level reassessed. Patient is alert, oriented x 3, equal unlabored respirations, skin warm/dry/pink. feeling much better. Vital Signs: 20:03 BP 129 / 95; Pulse 62; Resp 17; Temp 98.3; Pulse Ox 100% on R/A; Weight 101.6 kg; dd2 Height 5 ft. 10 in. ; Pain 5/10; 20:44 BP 129 / 85; Pulse 57; Resp 18; Pulse Ox 100% on R/A; al5 21:33 BP 129 / 86; Pulse 56; Resp 16; Pulse Ox 92% on R/A; kb4 21:54 Pulse Ox 97% on 2 lpm NC; kb4 22:24 BP 130 / 86; Pulse 65; Resp 16; Pulse Ox 98% on R/A; kb4 20:03 Body Mass Index 32.14 (101.60 kg, 177.8 cm) dd2 20:03 Pain Scale: Adult dd2 ED Course: 19:55 Patient arrived in ED. gm2 19:56 Justin Powell MD is Private Physician. gm2 20:00 Ana Luisa Hay MD is Attending Physician. sp3 20:07 Triage completed. dd2 20:07 Arm band placed on right wrist. dd2 20:24 Langhorst, Leslie, RN is Primary Nurse. al5 20:30 CT Abd/Pelvis - Without Contrast In Process Unspecified. EDMS 21:00 Patient has correct armband on for positive identification. Provided Education on: d/c .kb4 21:00 No provider procedures requiring assistance completed. IV discontinued, intact, kb4 bleeding controlled, No redness/swelling at site. Pressure dressing applied. 22:03 Jose Alfredo Cortes MD is Referral Physician. sp3 Administered Medications: 20:38 Drug: TORadol - Ketorolac IVP 15 mg IVP once Route: IVP; Site: right antecubital; al5 21:02 Follow up: Response: No adverse reaction al5 20:38 Drug: Ondansetron IVP 4 mg IVP once; over 2 minutes Route: IVP; Site: right antecubital;al5 21:01 Follow up: Response: No adverse reaction al5 20:38 Drug: NS 0.9% IV 1000 ml IV at 1 bolus Per protocol; to be given as a bolus over 60 al5 minutes Route: IV; Rate: 1 bolus; Site: right antecubital; 21:01 Drug: HYDROmorphone IVP 2 mg IVP once Route: IVP; Site: left antecubital; al5 21:29 Follow up: Response: No adverse reaction kb4 Medication: 22:26 VIS not applicable for this client. kb4 Outcome: 21:00 Discharged to home ambulatory, with family, kb4 21:00 Condition: good 21:00 Discharge instructions given to patient, family, Instructed on discharge instructions, follow up and referral plans. medication usage, Demonstrated understanding of instructions, follow-up care, medications, Prescriptions given X 3, 22:03 Discharge ordered by . sp3 22:27 Patient left the ED. kb4 Signatures: Dispatcher [employer] EDMS Ana Luisa Hay MD MD sp3 Lora Elder gm2 Leslie Andrea RN RN al5 ALDAIR RIZVI RN RN dd2 Louise Reddy RN RN kb4 Corrections: (The following items were deleted from the chart) 22:26 22:25 [facility] ED Fall Risk Assessment (Adult) History of falling in the last 3 months, kb4 including since admission No falls in past 3 months (0 pts) Confusion or Disorientation No (0 pts) Intoxicated or Sedated No (0 pts) Impaired Gait No (0 pts) Mobility Assist Device Used No (0 pt) Altered Elimination No (0 pt) Score/Fall Risk Level 0 - 2 = Low Risk kb4 22:26 22:25 Tuberculosis screening: No symptoms or risk factors identified. [facility]
[2025-04-05 23:22] VITALS: TEMP 98.3
[2025-04-05 23:29] VITALS: BP 130/86; O2SAT 98
== END 2025-04-05 22:27 | disposition home or self-care (01) ==
LOC: ER 19:53
DX: N20.2 Calculus of kidney with calculus of ureter (principal); Z87.442 Personal history of urinary calculi; Z96.0 Presence of urogenital implants
CPT/HCPCS: 85025; 36415; 81003; 83690; 80053; 74176; 99284; J1171; J2405; J7030; J1885